=== PATIENT | male | born 1955 | race Caucasian/White ===

== ENCOUNTER → 2019-01-04 | Outpatient (CLI) | payer MEDICARE, OTHER ==
--- NOTE | 2019-01-04 07:39 | US ---
EXAMINATION TYPE: US liver DATE OF EXAM: 01/04/2019 COMPARISON: NONE CLINICAL HISTORY: R74.8 Abnormal levels of other serum enzymes. EXAM MEASUREMENTS: Liver Length: 15.0 cm Gallbladder Wall: 0.2 cm CBD: 0.4 cm Right Kidney: 11.0 x 4.7 x 5.8 cm Pancreas: Obscured by bowel gas Liver: Slightly heterogeneous echotexture Gallbladder: wnl Evidence for sonographic Fernández's sign: No CBD: wnl Right Kidney: No hydronephrosis or masses seen IMPRESSION: 1. Probable fatty liver versus diffuse hepatocellular disease.
== END | disposition home or self-care (01) ==
LOC: RADUSWWP 06:57
PROVIDERS: ATTEND Family Medicine
DX: R74.8 Abnormal levels of other serum enzymes (principal)
CPT/HCPCS: 76705

== ENCOUNTER → 2019-01-18 | Outpatient (CLI) | payer MEDICARE, OTHER ==
--- NOTE | 2019-01-18 11:29 | MR ---
EXAMINATION TYPE: MR cervical spine wo/w con DATE OF EXAM: 01/18/2019 COMPARISON: 08/21/2011 HISTORY: 63-year-old male Cervical disc disorder with myelopathy Technique: Multiplanar, multisequence images of the cervical spine were obtained before and after adm inistration of 8.5 mL intravenous Gadavist gadolinium contrast. FINDINGS: No craniocervical junction anomaly, predental space widening, or prevertebral soft tissue swelling. Reversal of the normal cervical lordosis. Trace grade 1 retrolisthesis at C5-C6. Progressive, advanced discogenic endplate degenerative change from C4 through C6 levels with desiccat ed, narrowed discs with endplate irregularity, Modic type II fatty endplate change, and discussed by complex formation. Ligamentum flavum thickening particularly at C5-C6 and C6-C7. Multilevel advanced facet and uncovertebral joint arthropathy is present. There is interbody ankylosis with ankylosis across the posterior elements as well C3-C4. At C2-C3, mild facet arthropathy without significant canal or foraminal stenosis. At C3-C4, left-sided hypertrophic facet changes mildly narrowing the left neuroforamen. No spinal can al stenosis. At C4-C5, disc osteophyte complex with left greater than right facet and uncovertebral joint degenera tive change. Changes result in moderate to severe left and moderate right neuroforaminal stenosis. Th ere is mild spinal canal stenosis with disc osteophyte complex abutting and minimally flattening the ventral cord. At C5-C6, there is trace grade 1 retrolisthesis with hypertrophic facet arthropathy and uncovertebral joint arthropathy, left greater than right with ligamentum flavum thickening and disc osteophyte com plex. Changes result in moderate spinal canal stenosis (AP canal dimension of 5.3 mm) with abutment a nd flattening of both the dorsum ventral cord and moderate to severe left greater than right neurofor aminal stenoses. Changes are progressed from 2010. At C6/C7, discussed by complex with ligamentum flavum thickening and right greater than left hypertro phic facet and uncovertebral joint arthropathy is present. There is abutment of both the dorsal and v entral cord and slight ventral cord flattening. Mild to moderate spinal canal stenosis with AP canal dimension of 7.6 mm. There is severe right and moderate left neuroforaminal stenosis. Of note, severe degenerative changes are present at this right facet joint with subarticular and ghulam articular enhancement and joint effusion. T1 sequence shows some decreased marrow signal near that champion bsequently enhances on postcontrast imaging. Subtle increased cord signal at this level not clearly confirmed on the axial series, refer to quyen griggs image 6. At C7-T1, there is facet arthropathy resulting in mild right neuroforaminal stenosis. No significant spinal canal stenosis. No prevertebral or paravertebral soft tissue abnormality seen. No abnormal enhancement within the spinal canal. IMPRESSION: 1. Moderate disc/endplate degenerative change progressed particularly from C4 through C7 levels. Mult ilevel advanced hypertrophic facet and uncovertebral joint arthropathy is also present with ligamentu m flavum thickening. Overall changes have progressed from 2011. 2. Trace grade 1 retrolisthesis at C5-C6. 3. Changes result in moderate spinal canal stenosis at C5-C6 (AP canal dimension of 5.3 mm) with abut ment and flattening of both the dorsal and ventral cord. 4. At C6-C7, there is mild to moderate spinal canal stenosis (AP canal dimension of 7.6 mm). There is subtle increased cord signal at this level not confirmed on the axial series. Artifact is suspected but subtle cord edema/ myelopathic signal change is difficult to entirely exclude. Correlate with pat ient's symptoms. 5. Of note, there is severe hypertrophic degenerative change at the right C6-C7 facet joint with asso ciated joint effusion, decreased T1 osseous signal, and associated subarticular and periarticular enh ancement. Findings may be secondary to acute exacerbation of underlying osteoarthrosis versus inflamm atory arthropathy. Correlation can be performed with WBC, clinical presentation, and inflammatory mar kers to exclude the possibility of infectious arthropathy. 6. Variable moderate and severe neuroforaminal stenoses as outlined above. A [place] level critical message alert has been initiated for Karl Salinas MD via the [facility] Critical Results System on 01/18/2019 11:27 AM. This message alert has been sent to Karl Salinas MD vi a the preferences provided by the clinician for the receipt of Radiology Critical Findings. Message I D [id number].
== END ==
LOC: RADMRIMAIN 07:43
PROVIDERS: ATTEND Family Medicine
DX: M48.02 Spinal stenosis, cervical region (principal); M99.71 Connective tissue and disc stenosis of intervertebral foramina of cervical region; M47.12 Other spondylosis with myelopathy, cervical region; M46.92 Unspecified inflammatory spondylopathy, cervical region
CPT/HCPCS: 72156; A9585

== ENCOUNTER 2019-02-02 14:16 | Day surgery (SDC) | payer MEDICARE, OTHER ==
[2019-02-01 12:14] VITALS: BMI 29.0
[~2019-02-02 14:16] MED LIST: LACTATED RINGERS 1,000 ML IV SCH
[2019-02-02 14:45] VITALS: RESP 16; TEMP 97.9
[2019-02-02] MEDS ORDERED: PROPOFOL 10 MG/ML 20 ML VIAL IV ONE (15:49)
[2019-02-02] MEDS ORDERED: LIDOCAINE 1% INJ 10MG/ML (20 ML MDV) ONE (15:49)
[2019-02-02] MEDS ORDERED: fentaNYL (PF) 50 MCG/ML 2 ML AMP ONE (15:49)
[2019-02-02 16:58] VITALS: PULSE 57
--- NOTE | 2019-02-02 17:02 | P.PCN ---
Date of Procedure: 02/02/19 Description of Procedure: Brief history: Patient is a pleasant 63-year-old male scheduled for an elective upper endoscopy as well as colonoscopy as a part of evaluation of GERD and history of colonic polyps. The patient reports long-standing history of gastroesophageal reflux disease which she has controlled with dietary modifications. He has previously undergone investigation with upper endoscopy in the past. The patient has a history of colonic polyps as well and reports polypectomy on his first 2 colonoscopies, however his last colonoscopy 5 years ago polyps were seen. Procedure performed: Esophagogastroduodenoscopy with biopsy Colonoscopy with polypectomy Estimated blood loss: Minimal. Preoperative diagnosis: GERD, history of colonic polyps, last colonoscopy 5 years ago Anesthesia: MAC Procedure: After informed consent was obtained from the patient was brought into the endo scopy unit and IV sedation was administered by anesthesia under continuous monitoring. Initially upper endoscopy was done. The Olympus GF 190 video endoscope was inserted inserted into the mouth and esophagus intubated without any difficulty and was gradually advanced into the stomach and duodenum and carefully examined. The bulb and second part of the duodenum appeared normal, biopsies taken. The scope was then withdrawn into the stomach adequately insufflated with air and upon careful examination the antrum and body, cardia and fundus appeared grossly normal with some mild scattered erythema in the antrum and body suggestive of gastritis with biopsies taken. The scope was then withdrawn into the esophagus. The GE junction was located at 39 cm to the incisors, with biopsies taken given history of GERD. It appeared regular with no erythema erosions or ulcerations. Rest of the esophagus appeared normal. Patient tolerated the procedure well. At this time the patient continued to remain sedation. Initial digital rectal examination was normal. Olympus CF 190 video colonoscope was then inserted into the rectum and gradually advanced to the cecum without any difficulty. Careful examination was performed as the scope was gradually being withdrawn. The prep was excellent. The cecum, ascending colon, transverse colon, descending colon, sigmoid colon and rectum appeared normal. Small and large mouth diverticula noted in the sigmoid and descending colon. 6 mm sessile polyp noted in the cecum and removed with cold snare polypectomy. 8 millimeters sessile polyp noted in the ascending colon removed with cold snare polypectomy. 4 mm sessile transverse colon polyp removed with cold snare polypectomy. 6 mm sigmoid colon polyp removed with cold snare polypectomy. 8 mm sessile sigmoid colon polyp removed with hot snare polypectomy. Retroflexion was performed in the rectum and no lesions were noted, mild internal hemorrhoids seen. Patient tolerated the procedure well. Impression: 1. Gastritis antrum and body, biopsied. Duodenal and GE junction biopsies. 2. Cecal, ascending, transverse and sigmoid colon polypectomies. 3. Diverticulosis. 4. Internal hemorrhoids. Recommendations: Findings of this examination were discussed with the patient as well as his . Await pathology from biopsies. Recommend repeat colonoscopy in 5 years, pending pathology. Okay for high-fiber diet. Follow up with gastroenterology as previously scheduled/
[2019-02-02 17:23] VITALS: BP 149/86
== END 2019-02-02 17:54 | disposition home or self-care (01) ==
LOC: ORWHC2ENDO 14:16
PROVIDERS: ATTEND Internal Medicine
DX: K21.0 Gastro-esophageal reflux disease with esophagitis (principal); D12.0 Benign neoplasm of cecum; D12.3 Benign neoplasm of transverse colon; D12.5 Benign neoplasm of sigmoid colon; K29.50 Unspecified chronic gastritis without bleeding; K31.9 Disease of stomach and duodenum, unspecified; K64.8 Other hemorrhoids; Z86.010 Personal history of colon polyps; Z87.891 Personal history of nicotine dependence; Z88.3 Allergy status to other anti-infective agents; Z88.2 Allergy status to sulfonamides; I10 Essential (primary) hypertension; Z79.82 Long term (current) use of aspirin
CPT/HCPCS: 45380; 45385; 43239; J2001; J3010; J2704; 88305

== ENCOUNTER 2019-09-29 10:48 | Day surgery (SDC) | payer MEDICARE, OTHER ==
[2019-09-26 16:18] VITALS: BMI 29.1
[~2019-09-29 10:48] MED LIST changes: +DEXAMETHASONE SOD PHOSPHATE 10 MG/ML 1 ML VIAL IV ONE; +HEPARIN SODIUM,PORCINE 5,000 UNIT/ML 1 ML VIAL SQ ONE; +HYDROmorphone 0.5 MG/0.5 ML SYRINGE IVP PRN; +MIDAZOLAM 2 MG/2 ML VIAL IV PRN; +ONDANSETRON 4 MG/2 ML VIAL IVP ONE; +Pre Op ABX Message 1 EACH MISC MISCELLANE ONE
[2019-09-29] MEDS ORDERED: LIDOCAINE 1% 20 ML VIAL (10MG/ML) FOR IV START INTRADERMA ONE (11:20)
[2019-09-29] MEDS ORDERED: KETOROLAC 30 MG/ML 1 ML VIAL ONE (11:56)
[2019-09-29] MEDS ORDERED: MIDAZOLAM 2 MG/2 ML VIAL ONE (11:56)
[2019-09-29] MEDS ORDERED: fentaNYL (PF) 50 MCG/ML 2 ML AMP ONE (11:56)
[2019-09-29] MEDS ORDERED: PROPOFOL 10 MG/ML 20 ML VIAL IV ONE (11:56)
[2019-09-29] MEDS ORDERED: SUCCINYLCHOLINE CHLORIDE 100 MG/5 ML SYR IV ONE (11:56)
[2019-09-29] MEDS ORDERED: LIDOCAINE 1% INJ 10MG/ML (20 ML MDV) ONE (11:56)
[2019-09-29] MEDS ORDERED: ePHEDrine SULFATE/0.9% NACL/PF 50 MG/5 ML SYRINGE IV ONE (11:56)
[2019-09-29] MEDS ORDERED: BUPIVACAINE (PF) 0.25% 30 ML VIAL SQ ONE ×3 (12:27→12:51)
[2019-09-29] MEDS ORDERED: NALOXONE 0.4 MG/ML 1 ML VIAL IV PRN (13:08)
[2019-09-29] MEDS ORDERED: HYDROcodone/APAP 5-325MG 1 EACH TAB PO PRN (13:08)
--- NOTE | 2019-09-29 13:13 | P.OP ---
Date of Procedure: 09/29/19 Procedure(s) Performed: PREOPERATIVE DIAGNOSIS: Posterior neck lipoma POSTOPERATIVE DIAGNOSIS: Same PROCEDURE: Excision posterior neck lipoma, intermediate closure SURGEON: Laurie EBL: 10 mL ANESTHESIA: General COMPLICATIONS: None OPERATIVE PROCEDURE: Patient placed on the operative table in the prone position after general anesthesia achieved. Posterior neck prepped and draped sterilely. By palpation the patient had a posterior neck lipoma measuring approximately 6 x 4 cm. A horizontal incision was made overlying the palpable mass. The superficial subcutaneous tissues were divided using electrocautery. The abnormal lipomatous tissue was fairly easy to delineate from the normal fatty tissue. This was very lobulated. Multiple pseudopod like extensions were identified extending to the right and to the left. The largest extensions were actually to the left and one particular extension went to the left superiorly and back medially again. Excision took place using electrocautery and blunt dissection. It appeared to be completely excised. No additional abnormal lipomatous tissue was seen. As I palpated the subcutaneous tissues the area in the superior midline just above our incision site actually felt indurated. As I inspected this tissue more closely this was just simply normal fatty tissue and lipomatous tissue had been removed on either side of this making this feel prominent. The area was irrigated with saline. No bleeding was seen. The subcutaneous tissues were closed using 3-0 Vicryl sutures. The skin was closed using 4-0 Monocryl sutures. Length of closure 6 cm. Skin glue and sterile dressings were applied. DISPOSITION: Stable to recovery room
[2019-09-29 13:18] VITALS: TEMP 97.6
[2019-09-29 13:25] VITALS: RESP 16
[2019-09-29] MEDS ORDERED: ACETAMINOPHEN IV (For NPO) 1,000 MG/100 ML VIAL IVPB ONE (13:29)
[2019-09-29 13:42] VITALS: PULSE 66
[2019-09-29 13:59] VITALS: BP 125/80
== END 2019-09-29 14:29 | disposition home or self-care (01) ==
LOC: OR 10:48
PROVIDERS: ATTEND Surgery
DX: D17.0 Benign lipomatous neoplasm of skin and subcutaneous tissue of head, face and neck (principal); I10 Essential (primary) hypertension; L71.9 Rosacea, unspecified; Z79.890 Hormone replacement therapy; Z79.899 Other long term (current) drug therapy; Z98.890 Other specified postprocedural states; Z90.89 Acquired absence of other organs; Z83.3 Family history of diabetes mellitus; Z82.49 Family history of ischemic heart disease and other diseases of the circulatory system
CPT/HCPCS: 21552; 88304; J2250; J1644; J1100; J0690; J2405; J2001; J3010; J1885; J0131; J0330; J2704

== ENCOUNTER → 2019-12-12 | Outpatient (CLI) | payer MEDICARE, OTHER ==
--- NOTE | 2019-12-12 08:24 | US ---
EXAMINATION TYPE: US duplex aorta DATE OF EXAM: 12/12/2019 COMPARISON: NONE CLINICAL HISTORY: Z13.9 screening for AAA. EXAM MEASUREMENTS: Abdominal Aorta: Proximal: 2.9cm Transverse Mid: 2.1cm Transverse Distal: 2.1cm Transverse Bifurcation: 1.3cm A/P Right Common Iliac Artery; 1.3cm in Transverse and A/P Left Common Iliac A rtery Ectatic aorta noted proximally for approximately 6.7cm in length. Intimal wall thickening is noted di stally. IMPRESSION: Proximal abdominal aortic ectasia nearing size criteria for aneurysmal dilatation measuri ng 2.9 cm in transverse dimension and extending approximately 6.7 cm in length.
== END | disposition home or self-care (01) ==
LOC: RADUSWWP 07:43
PROVIDERS: ATTEND Family Medicine
DX: I77.811 Abdominal aortic ectasia (principal)
CPT/HCPCS: 93979

== ENCOUNTER → 2020-08-01 | Outpatient (CLI) | payer MEDICARE, OTHER ==
--- NOTE | 2020-08-01 11:02 | US ---
EXAMINATION TYPE: US duplex aorta DATE OF EXAM: 08/01/2020 COMPARISON: 12/12/2019 CLINICAL HISTORY: 65-year-old male I71.4 abdominal aortic aneurysm. TECHNIQUE: Multiple sonographic images of the abdominal aorta are obtained. FINDINGS: EXAM MEASUREMENTS: Abdominal Aorta: Proximal: 2.5cm (previously measured at 2.9 cm). Mid: 2.0cm Distal: 1.6cm Bifurcation: Rt: 1.1cm Lt:1.1cm IMPRESSION: 1. Borderline ectatic upper abdominal aorta at 2.5 cm. Note that this segment was previously measured at 2.9 cm. 2. Otherwise, no evidence for AAA.
== END | disposition home or self-care (01) ==
LOC: RADUSWWP 07:43
PROVIDERS: ATTEND Family Medicine
DX: I71.4 Abdominal aortic aneurysm, without rupture (principal)
CPT/HCPCS: 93979

== ENCOUNTER 2021-10-15 09:24 | Day surgery (SDC) | payer MEDICARE, OTHER ==
[2021-10-13 16:12] VITALS: BMI 30.2
[2021-10-15] MEDS ORDERED: LACTATED RINGERS 1,000 ML IV SCH (09:57)
[2021-10-15] MEDS ORDERED: LIDOCAINE 1% (10MG/ML) FOR IV START INTRADERMA PRN (09:57)
[2021-10-15 10:17] VITALS: TEMP 96.6
[2021-10-15] MEDS ORDERED: LIDOCAINE 1% INJ 10MG/ML (20 ML MDV) ONE (10:28)
[2021-10-15] MEDS ORDERED: PROPOFOL 10 MG/ML 20 ML VIAL IV ONE (10:28)
--- NOTE | 2021-10-15 11:09 | P.PCN ---
Date of Procedure: 10/15/21 Procedure(s) Performed: Brief history: Patient is a pleasant 66-year-old white male scheduled for an elective upper endoscopy as well as colonoscopy as a part of evaluation of GERD and iron deficiency anemia. He also has history of colon polyps. Procedure performed: Esophagogastroduodenoscopy with biopsy Colonoscopy with snare polypectomy Preoperative diagnosis: Iron deficiency anemia and long-standing history of GERD Anesthesia: MAC Procedure: After informed consent was obtained from the patient was brought into the endoscopy unit and IV sedation was administered by anesthesia under continuous monitoring. Initially upper endoscopy was done. The Olympus GF 160 video endoscope was inserted inserted into the mouth and esophagus intubated without any difficulty and was gradually advanced into the stomach and duodenum and carefully examined. The bulb and second part of the duodenum appeared normal. The scope was then withdrawn into the stomach adequately insufflated with air and upon careful examination the antrum and body, cardia and fundus appeared normal. The scope was then withdrawn into the esophagus. The GE junction was located at 40 cm to the incisors. It appeared regular with no erythema erosions or ulcerations. Rest of the esophagus appeared normal. Patient tolerated the procedure well. At this time the patient continued to remain sedation. Initial digital rectal examination was normal. Olympus CF 160 video colonoscope was then inserted into the rectum and gradually advanced to the cecum without any difficulty. Careful examination was performed as the scope was gradually being withdrawn. The prep was excellent. The cecum, ascending colon was normal. The transverse colon there was a 7 mm polyp that was removed by snare polypectomy. Rest of the, transverse colon, descending colon, sigmoid colon and rectum appeared normal. Scattered left-sided diverticulosis seen. Retroflexion was performed in the rectum and no lesions were noted. Patient tolerated the procedure well. Impression: 1. Upper Endoscopy revealed mild antral gastritis but no evidence of esophagitis or peptic ulcer disease 2. Colonoscopy revealed 7 mm transverse colon polyp status post polypectomy and scattered sigmoid diverticulosis Recommendations: Findings of this examination were discussed with the patient as well as his family. He was advised to follow with the biopsy results. If the biopsy reveals adenoma he can have a repeat colonoscopy in 5 years.
[2021-10-15 11:39] VITALS: BP 131/78; PULSE 57; RESP 16
== END 2021-10-15 12:10 | disposition home or self-care (01) ==
LOC: ORWHC2ENDO 09:24
PROVIDERS: ATTEND Internal Medicine Gastroenterology
DX: Z12.11 Encounter for screening for malignant neoplasm of colon (principal); D50.9 Iron deficiency anemia, unspecified; K21.9 Gastro-esophageal reflux disease without esophagitis; K29.50 Unspecified chronic gastritis without bleeding; D12.3 Benign neoplasm of transverse colon; Z86.010 Personal history of colon polyps; K57.30 Diverticulosis of large intestine without perforation or abscess without bleeding; I10 Essential (primary) hypertension; Z98.890 Other specified postprocedural states; Z79.899 Other long term (current) drug therapy; Z88.2 Allergy status to sulfonamides; Z88.8 Allergy status to other drugs, medicaments and biological substances; Z88.1 Allergy status to other antibiotic agents
CPT/HCPCS: 88305; 45385; 43239; J2001; J2704

== ENCOUNTER → 2021-11-07 | Outpatient (CLI) | payer MEDICARE, OTHER ==
[~2021-11-07] MED LIST changes: +CASIRIVIMAB (REGN10933) (EUA) 600 MG, IMDEVIMAB (REGN10987) (EUA) 600 MG in SODIUM CHLO... IVPB NR; -DEXAMETHASONE SOD PHOSPHATE 10 MG/ML 1 ML VIAL IV ONE; -HEPARIN SODIUM,PORCINE 5,000 UNIT/ML 1 ML VIAL SQ ONE; -HYDROmorphone 0.5 MG/0.5 ML SYRINGE IVP PRN; -LACTATED RINGERS 1,000 ML IV SCH; -MIDAZOLAM 2 MG/2 ML VIAL IV PRN; -ONDANSETRON 4 MG/2 ML VIAL IVP ONE; -Pre Op ABX Message 1 EACH MISC MISCELLANE ONE; +SODIUM CHLORIDE 0.9% 50 ML IVPB NR; +SODIUM CHLORIDE 0.9% 500 ML 500 ML in EMPTY BAG 1 BAG IV PRN
[2021-11-07 08:38] VITALS: TEMP 97.8
[2021-11-07 09:00] VITALS: RESP 16
[2021-11-07 09:27] VITALS: BP 100/62; PULSE 60
== END ==
LOC: PROCWHC3 08:01
PROVIDERS: ATTEND Physician Assistant
DX: U07.1 COVID-19 (principal)
CPT/HCPCS: 96360; Q0244; M0243

== ENCOUNTER 2021-11-10 18:43 | Emergency (ER) | payer MEDICARE, OTHER ==
[2021-11-10 19:06] VITALS: TEMP 98.1
--- NOTE | 2021-11-10 19:31 | XR ---
EXAMINATION TYPE: XR chest 2V DATE OF EXAM: 11/10/2021 COMPARISON: NONE HISTORY: Cough and shortness of breath. TECHNIQUE: Frontal and lateral views of the chest are obtained. FINDINGS: There is no focal air space opacity, pleural effusion, or pneumothorax seen. The cardiac silhouette size is mildly enlarged. The osseous structures are intact. IMPRESSION: No acute cardiopulmonary process.
--- NOTE | 2021-11-10 19:57 | ED ---
SOB HPI - General Source: patient, RN notes reviewed Mode of arrival: ambulatory Limitations: no limitations - History of Present Illness MD Complaint: cough <[place] - Last Filed: 11/10/21 21:14> <Jose Braswell - Last Filed: 11/10/21 21:51> - General Chief Complaint: Shortness of Breath Stated Complaint: Cough Time Seen by Provider: 11/10/21 19:06 - History of Present Illness Initial Comments: 66-year-old male who presents with complaints of cough he had fever chills and sweats last temperature was 101.5 but states this resolved 3 days ago he was diagnosed with Covid and received antibodies. No chest pain reported he states when he was supine he can feel congestion in his chest. He relates that it feels similar to when he had pneumonia in the past. No other current complaints or modifying factors ([place]) - Related Data Home Medications Medication Instructions Recorded Confirmed Ascorbic Acid [Vitamin C] 1,000 mg PO DAILY 02/01/19 11/07/21 Cholecalciferol [Vitamin D3] 12,500 unit PO DAILY 02/01/19 11/07/21 Glucosam/Abdias-Msm1/C/Joaquin/Bosw 2 each PO DAILY 02/01/19 11/07/21 [Glucosamine-Chondroitin Tablet] L.acidoph,Paracasei, B.lactis 1 each PO DAILY 02/01/19 11/07/21 [Probiotic] Levomefolate Calcium 15 mg PO DAILY 02/01/19 11/07/21 [l-Methylfolate Calcium] Losartan Potassium 50 mg PO QAM 02/01/19 11/07/21 Milk Thistle 500 mg PO DAILY 02/01/19 11/07/21 Mk 7 Supplement 1 tab PO DAILY 02/01/19 11/07/21 Niacin (Inositol Niacinate) 500 mg PO DAILY 02/01/19 11/07/21 [Niacin 500 mg Capsule] [place]-3 Fatty Acids [[place]-3] 3,000 mg PO DAILY 02/01/19 11/07/21 Prasterone (Dhea) [Dhea] 300 mg PO DAILY 02/01/19 11/07/21 Pregnenolone Supplement 300 mg PO DAILY 02/01/19 11/07/21 Testosterone [Testosterone 10 MG] 50 mg TOPICAL DAILY 02/01/19 11/07/21 Turmeric Root Extract [Turmeric] 1,000 mg PO DAILY 02/01/19 11/07/21 Ubidecarenone [Co Q-10] 400 mg PO DAILY 02/01/19 11/07/21 Vitamin B Complex 1 each PO DAILY 02/01/19 11/07/21 Zinc 50 mg PO DAILY 02/01/19 11/07/21 Famotidine [Pepcid] 40 mg PO 1200 PRN 09/26/19 11/07/21 Doxazosin Mesylate 1 tab PO DAILY 10/15/21 11/07/21 Previous Rx's Medication Instructions Recorded Dexamethasone 6 mg PO DAILY #6 tablet 11/10/21 Allergies Allergy/AdvReac Type Severity Reaction Status Date / Time doxycycline Allergy TURNS SKIN Verified 11/10/21 19:07 OF THE FINGERS PURPLE" nickel Allergy Rash/Hives Verified 11/10/21 19:07 Sulfa (Sulfonamide Allergy Rash/Hives Verified 11/10/21 19:07 Antibiotics) nitrofurantoin AdvReac Nausea & Verified 11/10/21 19:07 Vomiting Review of Systems ROS Other: All systems not noted in ROS Statement are negative. <[place] - Last Filed: 11/10/21 21:14> ROS Other: All systems not noted in ROS Statement are negative. <Jose Braswell - Last Filed: 11/10/21 21:51> ROS Statement: Those systems with pertinent positive or pertinent negative responses have been documented in the HPI. Past Medical History Past Medical History: Atrial Fibrillation, GERD/Reflux, Hypertension Additional Past Medical History / Comment(s): ,prediabetic, PAST HISTORY ATRIAL FIB, ELEVATED LIVER ENZYMES IN THE PAST History of Any Multi-Drug Resistant Organisms: None Reported Past Surgical History: Cardiac Ablation, Tonsillectomy Additional Past Surgical History / Comment(s): lipomas removed x2, ACL rt knee- ARTHROSCOPIC Past Anesthesia/Blood Transfusion Reactions: Postoperative Nausea & Vomiting (PONV) Past Psychological History: No Psychological Hx Reported Smoking Status: Former smoker - Past Family History Mother Family Medical History: No Reported History <[place] - Last Filed: 11/10/21 21:14> General Exam Limitations: no limitations General appearance: alert, in no apparent distress Head exam: Present: atraumatic, normocephalic, normal inspection Eye exam: Present: normal appearance, PERRL, EOMI. Absent: scleral icterus, conjunctival injection, periorbital swelling ENT exam: Present: normal exam, mucous membranes moist Neck exam: Present: normal inspection. Absent: tenderness, meningismus, lymphadenopathy Respiratory exam: Present: decreased breath sounds, other (Decreased breath sounds no focal consolidation). Absent: respiratory distress, wheezes, rales, rhonchi, stridor Cardiovascular Exam: Present: regular rate, normal rhythm, normal heart sounds. Absent: systolic murmur, diastolic murmur, rubs, gallop, clicks GI/Abdominal exam: Present: soft, normal bowel sounds. Absent: distended, tenderness, guarding, rebound, rigid Extremities exam: Present: normal inspection, full ROM, normal capillary refill. Absent: tenderness, pedal edema, joint swelling, calf tenderness Back exam: Present: normal inspection Neurological exam: Present: alert, oriented X3, CN II-XII intact Psychiatric exam: Present: normal affect, normal mood Skin exam: Present: warm, dry, intact, normal color. Absent: rash <[place] - Last Filed: 11/10/21 21:14> - General Exam Comments Initial Comments: This is a well-developed well-nourished awake alert oriented 3 male ([place]) Course <[place] - Last Filed: 11/10/21 21:14> Vital Signs 11/10/21 11/10/21 19:00 19:17 Temperature 98.1 F Pulse Rate 57 L Respiratory 18 20 Rate Blood Pressure 164/82 O2 Sat by Pulse 98 Oximetry - Reevaluation(s) Reevaluation #1: 11/10/21 21:14 Did a long discussion with the patient regarding the findings so far the patient does have elevated d-dimer in light of his symptoms and recent COVID-19 diagnosis CAT scan was ordered. This is pending at this time. The patient be endorsed to Dr. Braswell at our shift change. ([place]) Medical Decision Making - Lab Data Result diagrams: 11/10/21 19:45 11/10/21 19:45 - EKG Data -: EKG Interpreted by Me EKG shows normal: sinus rhythm - Radiology Data Radiology results: report reviewed (Imaging a report reviewed no acute findings.), image reviewed <[place] - Last Filed: 11/10/21 21:14> - Lab Data Result diagrams: 11/10/21 19:45 11/10/21 19:45 <Jose Braswell - Last Filed: 11/10/21 21:51> - Lab Data Lab Results 11/10/21 11/10/21 11/10/21 Range/Units 19:45 19:45 19:45 WBC 4.5 (3.8-10.6) k/uL RBC 4.02 L (4.30-5.90) m/uL Hgb 13.4 (13.0-17.5) gm/dL Hct 37.9 L (39.0-53.0) % MCV 94.3 (80.0-100.0) fL MCH 33.3 (25.0-35.0) pg MCHC 35.3 (31.0-37.0) g/dL RDW 12.1 (11.5-15.5) % Plt Count 168 (150-450) k/uL MPV 7.6 Neutrophils % (Manual) 61 % Lymphocytes % (Manual) 35 % Monocytes % (Manual) 3 % Eosinophils % (Manual) 1 % Neutrophils # (Manual) 2.75 (1.3-7.7) k/uL Lymphocytes # (Manual) 1.58 (1.0-4.8) k/uL Monocytes # (Manual) 0.14 (0-1.0) k/uL Eosinophils # (Manual) 0.05 (0-0.7) k/uL Nucleated RBCs 0 (0-0) /100 WBC Manual Slide Review Performed PT 10.0 (9.0-12.0) sec INR 0.9 (<1.2) APTT 26.7 (22.0-30.0) sec D-Dimer 0.70 H (<0.60) mg/L FEU Sodium 134 L (137-145) mmol/L Potassium 4.3 (3.5-5.1) mmol/L Chloride 98 (98-107) mmol/L Carbon Dioxide 25 (22-30) mmol/L Anion Gap 11 mmol/L BUN 13 (9-20) mg/dL Creatinine 0.79 (0.66-1.25) mg/dL Est GFR (CKD-EPI)AfAm >90 (>60 ml/min/1.73 sqM) Est GFR (CKD-EPI)NonAf >90 (>60 ml/min/1.73 sqM) Glucose 92 (74-99) mg/dL Plasma Lactic Acid Jigar (0.7-2.0) mmol/L Calcium 9.0 (8.4-10.2) mg/dL Magnesium 2.5 H (1.6-2.3) mg/dL Total Bilirubin 0.5 (0.2-1.3) mg/dL AST 56 (17-59) U/L ALT 60 H (4-49) U/L Alkaline Phosphatase 68 (38-126) U/L Troponin I (0.000-0.034) ng/mL NT-Pro-B Natriuret Pep pg/mL Total Protein 7.2 (6.3-8.2) g/dL Albumin 4.2 (3.5-5.0) g/dL 11/10/21 11/10/21 11/10/21 Range/Units 19:45 19:45 19:45 WBC (3.8-10.6) k/uL RBC (4.30-5.90) m/uL Hgb (13.0-17.5) gm/dL Hct (39.0-53.0) % MCV (80.0-100.0) fL MCH (25.0-35.0) pg MCHC (31.0-37.0) g/dL RDW (11.5-15.5) % Plt Count (150-450) k/uL MPV Neutrophils % (Manual) % Lymphocytes % (Manual) % Monocytes % (Manual) % Eosinophils % (Manual) % Neutrophils # (Manual) (1.3-7.7) k/uL Lymphocytes # (Manual) (1.0-4.8) k/uL Monocytes # (Manual) (0-1.0) k/uL Eosinophils # (Manual) (0-0.7) k/uL Nucleated RBCs (0-0) /100 WBC Manual Slide Review PT (9.0-12.0) sec INR (<1.2) APTT (22.0-30.0) sec D-Dimer (<0.60) mg/L FEU Sodium (137-145) mmol/L Potassium (3.5-5.1) mmol/L Chloride (98-107) mmol/L Carbon Dioxide (22-30) mmol/L Anion Gap mmol/L BUN (9-20) mg/dL Creatinine (0.66-1.25) mg/dL Est GFR (CKD-EPI)AfAm (>60 ml/min/1.73 sqM) Est GFR (CKD-EPI)NonAf (>60 ml/min/1.73 sqM) Glucose (74-99) mg/dL Plasma Lactic Acid Jigar 0.9 (0.7-2.0) mmol/L Calcium (8.4-10.2) mg/dL Magnesium (1.6-2.3) mg/dL Total Bilirubin (0.2-1.3) mg/dL AST (17-59) U/L ALT (4-49) U/L Alkaline Phosphatase (38-126) U/L Troponin I <0.012 (0.000-0.034) ng/mL NT-Pro-B Natriuret Pep 152 pg/mL Total Protein (6.3-8.2) g/dL Albumin (3.5-5.0) g/dL - EKG Data EKG Comments: Sinus bradycardia rate 53 164 QRS 80 QT since QTC 44/379 nonspecific inferior configuration ([place]) Disposition <[place] - Last Filed: 11/10/21 21:14> Is patient prescribed a controlled substance at d/c from ED?: No <Jose Braswell - Last Filed: 11/10/21 21:51> Clinical Impression: Pneumonia due to COVID-19 virus Disposition: HOME SELF-CARE Condition: Good Instructions (If sedation given, give patient instructions): Coronavirus Disease 2019 (COVID-19) Prescriptions: Dexamethasone 6 mg PO DAILY #6 tablet Referrals: Karl Salinas MD [Primary Care Provider] - 1-2 days
[2021-11-10 20:06] LABS: HCT 37.9 % (39.0-53.0); HGB 13.4 gm/dL (13.0-17.5); MCH 33.3 pg (25.0-35.0); MCHC 35.3 g/dL (31.0-37.0); MCV 94.3 fL (80.0-100.0); Mean Platelet Volume 7.6; Platelet Count 168 k/uL (150-450); RBC 4.02 m/uL (4.30-5.90); RDW 12.1 % (11.5-15.5); WBC 4.5 k/uL (3.8-10.6)
[2021-11-10 20:20] LABS: ALT 60 U/L (4-49); AST 56 U/L (17-59); African American GFR (CKD) >90 (>60 ml/min/1.73 sqM); Albumin 4.2 g/dL (3.5-5.0); Alkaline Phosphatase 68 U/L (38-126); Anion Gap 11 mmol/L; Blood Urea Nitrogen 13 mg/dL (9-20); Carbon Dioxide 25 mmol/L (22-30); Chloride 98 mmol/L (98-107); Glucose 92 mg/dL (74-99); Magnesium 2.5 mg/dL (1.6-2.3); Non-African American GFR(CKD) >90 (>60 ml/min/1.73 sqM); Potassium 4.3 mmol/L (3.5-5.1); Sodium 134 mmol/L (137-145); Total Bilirubin 0.5 mg/dL (0.2-1.3); Total Protein 7.2 g/dL (6.3-8.2)
[2021-11-10 20:26] LABS: INR 0.9 (<1.2); Partial Thromboplastin Time 26.7 sec (22.0-30.0)
[2021-11-10 20:45] LABS: Eosinophils # (M) 0.05 k/uL (0-0.7); Lymphocytes # (M) 1.58 k/uL (1.0-4.8); Monocytes # (M) 0.14 k/uL (0-1.0); Neutrophils # (M) 2.75 k/uL (1.3-7.7); Neutrophils % (M) 61 %; Nucleated Red Blood Cells 0 /100 WBC (0-0); Total Cells Counted 100
[2021-11-10 21:10] VITALS: RESP 20
--- NOTE | 2021-11-10 21:41 | CT ---
EXAMINATION TYPE: CT angio chest DATE OF EXAM: 11/10/2021 9:30 PM COMPARISON: Shortness of breath with elevated d-dimer and suspected PTE. HISTORY: pe CT DLP: 386.1 mGycm Automated exposure control for dose reduction was used. CONTRAST: CTA scan of the thorax is performed with IV Contrast, patient injected with 80 mL of Isovue 370, pulm onary embolism protocol. MIP images are created and reviewed. FINDINGS: LUNGS: There is subtle mild patchy groundglass opacities in the bilateral lower lobes, right middle l obe and lingula. There is no pleural effusion or pneumothorax seen. The tracheobronchial tree is pat ent. MEDIASTINUM: There is satisfactory enhancement of the pulmonary artery and its branches, there is no CT evidence for pulmonary embolism. There are no greater than 1 cm hilar or mediastinal lymph nodes. No pericardial effusion is seen. OTHER: No additional significant abnormality is seen. IMPRESSION: SUBTLE MILD PATCHY GROUND GLASS OPACITIES, CONSISTENT WITH ATYPICAL PNEUMONIA INCLUDING COVID. NO ACUTE PE.
[2021-11-10] MEDS ORDERED: dexAMETHasone 2 MG TAB PO STA (21:49)
[2021-11-10 22:17] VITALS: BP 157/86; PULSE 62
== END 2021-11-10 22:17 | disposition home or self-care (01) ==
LOC: EC 18:43
DX: U07.1 COVID-19 (principal); J12.82 Pneumonia due to coronavirus disease 2019; I10 Essential (primary) hypertension; I48.91 Unspecified atrial fibrillation; K21.9 Gastro-esophageal reflux disease without esophagitis; Z87.891 Personal history of nicotine dependence; Z79.899 Other long term (current) drug therapy
CPT/HCPCS: 36415; 93005; 85379; 83880; 80053; 83605; 83735; 84484; 85025; 85610; 85730; 71046; 71275; 99284; J8540; Q9967

== ENCOUNTER 2024-02-14 19:40 | Emergency (ER) | payer MEDICARE, OTHER ==
--- NOTE | 2024-02-14 20:32 | ED ---
Wound/Laceration HPI - General Chief Complaint: Wound/Laceration Stated Complaint: Left Fingers Laceration Time Seen by Provider: 02/14/24 20:28 Source: patient, RN notes reviewed Mode of arrival: ambulatory Limitations: no limitations - History of Present Illness Initial Comments: Patient is a 68-year-old male presented to the ER with chief complaint of finger lacerations. Patient states about 2 hours prior to arrival he was using a box car loader to cut plastic wrap to put the garbage. He states he accidentally cut the tip of his middle and ring left finger. Denies any paresthesias or limited range of motion. Denies other injuries. Tetanus is up-to-date. No other complaints at this time. - Related Data Home Medications Medication Instructions Recorded Confirmed Ascorbic Acid [Vitamin C] 1,000 mg PO DAILY 02/01/19 11/07/21 Cholecalciferol [Vitamin D3] 12,500 unit PO DAILY 02/01/19 11/07/21 Glucosam/Abdias-Msm1/C/Joaquin/Bosw 2 each PO DAILY 02/01/19 11/07/21 [Glucosamine-Chondroitin Tablet] L.acidoph,Paracasei, B.lactis 1 each PO DAILY 02/01/19 11/07/21 [Probiotic] Levomefolate Calcium 15 mg PO DAILY 02/01/19 11/07/21 [l-Methylfolate Calcium] Losartan Potassium 50 mg PO QAM 02/01/19 11/07/21 Milk Thistle 500 mg PO DAILY 02/01/19 11/07/21 Mk 7 Supplement 1 tab PO DAILY 02/01/19 11/07/21 Niacin (Inositol Niacinate) 500 mg PO DAILY 02/01/19 11/07/21 [Niacin 500 mg Capsule] Madison-3 Fatty Acids [Madison-3] 3,000 mg PO DAILY 02/01/19 11/07/21 Prasterone (Dhea) [Dhea] 300 mg PO DAILY 02/01/19 11/07/21 Pregnenolone Supplement 300 mg PO DAILY 02/01/19 11/07/21 Testosterone [Testosterone 10 MG] 50 mg TOPICAL DAILY 02/01/19 11/07/21 Turmeric Root Extract [Turmeric] 1,000 mg PO DAILY 02/01/19 11/07/21 Ubidecarenone [Co Q-10] 400 mg PO DAILY 02/01/19 11/07/21 Vitamin B Complex 1 each PO DAILY 02/01/19 11/07/21 Zinc 50 mg PO DAILY 02/01/19 11/07/21 Famotidine [Pepcid] 40 mg PO 1200 PRN 09/26/19 11/07/21 Doxazosin Mesylate 1 tab PO DAILY 10/15/21 11/07/21 Previous Rx's Medication Instructions Recorded dexAMETHasone [Dexamethasone] 6 mg PO DAILY #6 tablet 11/10/21 Allergies Allergy/AdvReac Type Severity Reaction Status Date / Time doxycycline Allergy TURNS SKIN Verified 02/14/24 20:05 OF THE FINGERS PURPLE" nickel Allergy Rash/Hives Verified 02/14/24 20:05 Sulfa (Sulfonamide Allergy Rash/Hives Verified 02/14/24 20:05 Antibiotics) nitrofurantoin AdvReac Nausea & Verified 02/14/24 20:05 Vomiting Review of Systems ROS Statement: Those systems with pertinent positive or pertinent negative responses have been documented in the HPI. ROS Other: All systems not noted in ROS Statement are negative. Past Medical History Past Medical History: Atrial Fibrillation, GERD/Reflux, Hypertension Additional Past Medical History / Comment(s): ,prediabetic, PAST HISTORY ATRIAL FIB, ELEVATED LIVER ENZYMES IN THE PAST History of Any Multi-Drug Resistant Organisms: None Reported Past Surgical History: Cardiac Ablation, Tonsillectomy Additional Past Surgical History / Comment(s): lipomas removed x2, ACL rt knee- ARTHROSCOPIC Past Anesthesia/Blood Transfusion Reactions: Postoperative Nausea & Vomiting (PONV) Past Psychological History: No Psychological Hx Reported Smoking Status: Former smoker Past Alcohol Use History: Daily Past Drug Use History: None Reported - Past Family History Mother Family Medical History: No Reported History General Exam Limitations: no limitations General appearance: alert, in no apparent distress Head exam: Present: atraumatic, normocephalic, normal inspection Eye exam: Present: normal appearance, PERRL, EOMI. Absent: scleral icterus, conjunctival injection, periorbital swelling Respiratory exam: Present: normal lung sounds bilaterally. Absent: respiratory distress, wheezes, rales, rhonchi, stridor Cardiovascular Exam: Present: regular rate, normal rhythm, normal heart sounds. Absent: systolic murmur, diastolic murmur, rubs, gallop, clicks Extremities exam: Present: normal inspection, full ROM, normal capillary refill. Absent: tenderness, pedal edema, joint swelling, calf tenderness Neurological exam: Present: alert, oriented X3, CN II-XII intact Psychiatric exam: Present: normal affect, normal mood Skin exam: Present: warm, dry, intact, normal color, other (Left third digit 2 cm superficial laceration. Left fourth digit 1 cm superficial laceration. No active bleeding. 2+ left radial pulse. Sensation intact. Patient has full active range of motion.) Course Vital Signs 02/14/24 02/14/24 20:03 21:21 Temperature 98.3 F Pulse Rate 64 60 Respiratory 18 17 Rate Blood Pressure 153/81 169/100 O2 Sat by Pulse 97 98 Oximetry Procedures - Laceration Laceration #1 Consent Obtained: verbal consent Indication: laceration Site: hand Size (cm): 2 Description: linear Depth: simple, single layer Anesthetic Used: lidocaine 1% Anesthesia Technique: local infiltration Amount (mls): 1 Pre-repair: wound explored, irrigated extensively, deep structures intact Type of Sutures: nylon Size of Sutures: 4-0 Number of Sutures: 2 Technique: simple, interrupted Patient Tolerated Procedure: well, no complications Laceration #2 Consent Obtained: verbal consent Indication: laceration Site: hand Size (cm): 1 Description: linear Anesthetic Used: lidocaine 1% Anesthesia Technique: local infiltration Amount (mls): 1 Pre-repair: wound explored, irrigated extensively, deep structures intact Type of Sutures: nylon Size of Sutures: 4-0 Number of Sutures: 2 Technique: simple, interrupted Patient Tolerated Procedure: well, no complications Medical Decision Making - Medical Decision Making Was pt. sent in by a medical professional or institution (, PA, INTELLIGENCE INTERN, urgent care, hospital, or [facility]...) When possible be specific @ -No Did you speak to anyone other than the patient for history (EMS, parent, family, police, friend...)? What history was obtained from this source @ -No Did you review nursing and triage notes (agree or disagree)? Why? @ -I reviewed and agree with nursing and triage notes Were old charts reviewed (outside hosp., previous admission, EMS record, old EKG, old radiological studies, urgent care reports/EKG's, [facility] records)? Report findings @ -No old charts were reviewed Differential Diagnosis (chest pain, altered mental status, abdominal pain women, abdominal pain men, vaginal bleeding, weakness, fever, dyspnea, syncope, headache, dizziness, GI bleed, back pain, seizure, CVA, palpatations, mental health, musculoskeletal)? @ -Laceration, abrasion, contusion, avulsion, foreign body this list is not meant to be all-inclusive EKG interpreted by me (3pts min.). @ -[None X-rays interpreted by me (1pt min.). @ -None done CT interpreted by me (1pt min.). @ -None done U/S interpreted by me (1pt. min.). @ -None done What testing was considered but not performed or refused? (CT, X-rays, U/S, labs)? Why? @ -None What meds were considered but not given or refused? Why? @ -None Did you discuss the management of the patient with other professionals (professionals i.e. , PA, INTELLIGENCE INTERN, lab, RT, psych nurse, licensed social worker, seamless tube roller, teacher, emergency communications officer, adult protective caseworker)? Give summary @ -No Was smoking cessation discussed for >3mins.? @ -No Was critical care preformed (if so, how long)? @ -No Were there social determinants of health that impacted care today? How? (Homelessness, low income, unemployed, alcoholism, drug addiction, transportation, low edu. Level, literacy, decrease access to med. care, snf, rehab)? @ -No Was there de-escalation of care discussed even if they declined (Discuss DNR or withdrawal of care, Hospice)? DNR status @ -No What co-morbidities impacted this encounter? (DM, HTN, Smoking, COPD, CAD, Cancer, CVA, ARF, Chemo, Hep., AIDS, mental health diagnosis, sleep apnea, morbid obesity)? @ -None Was patient admitted / discharged? Hospital course, mention meds given and route, prescriptions, significant lab abnormalities, going to OR and other pertinent info. @ -Discharge. Patient is a 68-year-old male presented to the ER with a chief complaint of finger laceration. History and physical exam completed. Vitals stable. Patient no signs of acute distress and nontoxic-appearing. Left third digit 2 cm superficial laceration. Left fourth digit 1 cm superficial laceration. No active bleeding. Left upper extremity neurovascular intact. Lacerations cleaned with iodine and sterile water. Closed using 2 simple interrupted sutures. Patient tolerated procedure well. Suture care and return parameters were discussed. Advised suture removal in 10 to 14 days. Patient discharged in stable condition follow-up PCP. Patient stressed understanding and agreement with care plan. Undiagnosed new problem with uncertain prognosis? @ -No Drug Therapy requiring intensive monitoring for toxicity (Heparin, Nitro, Insulin, Cardizem)? @ -No Were any procedures done? @ -No Diagnosis/symptom? @ -Laceration Acute, or Chronic, or Acute on Chronic? @ -Acute Uncomplicated (without systemic symptoms) or Complicated (systemic symptoms)? @ -Uncomplicated Side effects of treatment? @ -No Exacerbation, Progression, or Severe Exacerbation? @ -No Poses a threat to life or bodily function? How? (Chest pain, USA, IA, pneumonia, PE, COPD, DKA, ARF, appy, cholecystitis, CVA, Diverticulitis, Homicidal, Suicidal, threat to staff... and all critical care pts) @ -No Disposition Clinical Impression: Laceration Disposition: HOME SELF-CARE Condition: Stable Instructions (If sedation given, give patient instructions): Care For Your Stitches (ED) Additional Instructions: Have sutures removed in 10-14 days. Monitor for signs of infection including surrounding erythema, drainage, or increase in pain. Please keep area clean and dry. Follow-up with PCP. Return to the ER for any new or worsening concerns. Is patient prescribed a controlled substance at d/c from ED?: No Referrals: Karl Salinas MD [Primary Care Provider] - 1-2 days Time of Disposition: 21:04
[2024-02-14] MEDS: LIDOCAINE 1% INJ 10MG/ML (20 ML MDV) SQ ONE (20:46)
[2024-02-14 21:03] VITALS: TEMP 98.3
[2024-02-14 21:37] VITALS: BP 169/100; PULSE 60; RESP 17
== END 2024-02-14 22:00 | disposition home or self-care (01) ==
LOC: EC 19:40
DX: S61.215A Laceration without foreign body of left ring finger without damage to nail, initial encounter (principal); Z87.891 Personal history of nicotine dependence; Z88.2 Allergy status to sulfonamides; Z88.8 Allergy status to other drugs, medicaments and biological substances; W26.8XXA Contact with other sharp object(s), not elsewhere classified, initial encounter
CPT/HCPCS: 12002; 99282; J2001